=== PATIENT | male | born 1940 | race Caucasian/White ===

== ENCOUNTER 2017-11-11 19:22 | Inpatient (IN) | payer MEDICARE ==
[~2017-11-11] VITALS: Ht 175.3 cm; Wt 62.8 kg
[2017-11-11] MEDS ORDERED: ONDANSETRON 4 MG/2 ML VIAL IV ONE (19:45)
[2017-11-11] MEDS ORDERED: IV NORMAL SALINE 1000 ML BAG IV ONE (19:45)
[2017-11-11] MEDS ORDERED: HYDROMORPHONE 1 MG/1 ML DISP.SYRIN IV ONE (19:45)
[2017-11-11] MEDS ORDERED: HYDROMORPHONE 2 MG/1 ML DISP.SYRIN ONE ×2 (19:45→23:15)
[2017-11-11] MEDS ORDERED: ONDANSETRON 4 MG/2 ML VIAL ONE (19:46)
[2017-11-11 20:12] LABS: BASOPHILS # (AUTO) 0.1 K/uL (0.0-8.0); BASOPHILS % (AUTO) 1.5 % (0.0-2.0); EOSINOPHILS # (AUTO) 0.1 K/uL (0.0-0.7); EOSINOPHILS % (AUTO) 2.1 % (0.0-7.0); HEMATOCRIT 32.2 % (36.7-47.1); HEMOGLOBIN 10.9 g/dL (12.5-16.3); LYMPHOCYTES # (AUTO) 1.8 K/uL (20.0-40.0); MEAN CORPUSCULAR HEMOGLOBIN 32.3 uug (23.8-33.4); MEAN CORPUSCULAR HGB CONC 34 g/dL (32.5-36.3); MEAN CORPUSCULAR VOLUME 95.1 fL (73.0-96.2); MONOCYTES # (AUTO) 0.6 K/uL (2.0-10.0); MONOCYTES % (AUTO) 10.1 % (0.0-11.0); NEUTROPHILS # (AUTO) 3.2 K/uL (1.8-8.9); NEUTROPHILS % (AUTO) 55.3 % (38.5-71.5); PLATELET COUNT (AUTO) 137 K/uL (152-348); RED BLOOD CELL COUNT(AUTO) 3.39 MIL/uL (4.06-5.63); WHITE BLOOD COUNT (AUTO) 5.8 K/uL (3.6-10.2)
[2017-11-11 20:19] LABS: CARBON DIOXIDE 30 mmol/L (21-32); CHLORIDE 102 mmol/L (98-107); CREATININE 1.2 mg/dL (0.6-1.3); GLUCOSE 144 mg/dL (74-106); POTASSIUM 3.7 mmol/L (3.5-5.1); UREA NITROGEN, BLOOD 20 mg/dL (7-18)
[2017-11-11 20:24] LABS: *BILIRUBIN,URIN NEGATIVE (NEGATIVE); *BLOOD, URINE NEGATIVE (NEGATIVE); *CLARITY,URINE CLEAR (CLEAR); *COLOR,URINE YELLOW (YELLOW); *KETONES,URINE NEGATIVE (NEGATIVE); *PROTEIN,URINE 1+ (NEGATIVE); *UROBILINOGEN,URINE 0.2 E.U./dl (NORMAL); LEUKOCYTE ESTERASE ,URINE NEGATIVE (NEGATIVE); NITRITE, URINE NEGATIVE (NEGATIVE); PH,URINE 6.5 (5.0-8.0); UGLUCOSE NEGATIVE (NEGATIVE)
[2017-11-11 20:25] LABS: ALANINE AMINOTRANSFERASE 27 U/L (16-63); ALKALINE PHOSPHATASE 119 U/L (50-136); ASPARTATE AMINOTRANSFERASE 33 U/L (15-37); BILIRUBIN,DIRECT 0.6 mg/dL (0.0-0.2); BILIRUBIN,TOTAL 1.2 mg/dL (0.2-1.0); TOTAL PROTEIN, SERUM 8.5 g/dL (6.4-8.2)
[2017-11-11 20:42] LABS: MUCUS,URINE MODERATE /LPF (0-FEW); SQUAMOUS EPITHELIAL CELL,UR FEW /HPF (NONE SEEN); TRANSITIONAL EPI CELLS,URINE FEW /LPF (NONE SEEN)
[2017-11-11] MEDS ORDERED: HYDROMORPHONE 1 MG/1 ML DISP.SYRIN IV PRN (21:15)
[2017-11-11] MEDS ORDERED: MAGNESIUM HYDROXIDE 30 ML LIQUID UDC PO PRN (21:15)
[2017-11-11] MEDS ORDERED: ACETAMINOPHEN 325 MG TABLET PO PRN (21:15)
[2017-11-11] MEDS ORDERED: ONDANSETRON 4 MG/2 ML VIAL IV PRN (21:15)
[2017-11-11 21:30] VITALS: BP 134/79
[2017-11-11] MEDS ORDERED: DILTIAZEM HCL 25 MG IV IV PRN (22:30)
[2017-11-11] MEDS ORDERED: DIGOXIN 500 MCG/2 ML AMP IV ONE (23:15)
[2017-11-11] MEDS ORDERED: CHOL378P PO (23:24)
[2017-11-11] MEDS ORDERED: CLOP75TA33 PO (23:24)
[2017-11-11] MEDS ORDERED: ATOR80TA PO (23:24)
[2017-11-11] MEDS ORDERED: DICL100G16 TP (23:24)
[2017-11-11 23:33] LABS: ABG BASE EXCESS -3.8 mmol/L; ABG HCO3 26.2 mmol/L; ABG PCO2 76.6 mmHg (35.0-45.0); ABG PH 7.152 (7.350-7.450); ABG PO2 130.8 mmHg (75.0-100.0); ABG SITE LEFT RADIAL; ABG TOTAL HEMOGLOBIN 11.2 G/dL (13.5-18.0); COHb 1.6 % (0.5-1.5); MetHb 0.4 % (0.0-1.5); O2Hb 95.7 % (94.0-97.0)
[2017-11-11 23:49] VITALS: BP 137/85
[2017-11-11] MEDS ORDERED: MIDAZOLAM HCL 2 MG/2 ML VIAL ONE (23:58)
[2017-11-12] VITALS (40 sets, daily range): BP systolic 85–120; BP diastolic 47–73
[2017-11-12] MEDS ORDERED: AMIODARONE HCL IV 900 MG in IV DEXTROSE 5% 482 ML IV PRN ×2
[2017-11-12] MEDS ORDERED: DIGOXIN 500 MCG/2 ML AMP IV ONE
[2017-11-12] MEDS: METOPROLOL TARTRATE 25 MG TABLET PO SCH ×3 (00:28→20:44)
[2017-11-12] MEDS ORDERED: AMIODARONE HCL 150 MG/3 ML VIAL IV ONE (00:42)
[2017-11-12] MEDS: PROPOFOL 100 ML IV PRN ×3 (01:17→22:28)
[2017-11-12] MEDS ORDERED: IV NS 1000 ML 1,000 ML IV PRN (03:00)
[2017-11-12] MEDS ORDERED: DIPH25CA83 TOP (04:04)
[2017-11-12] MEDS ORDERED: APIX5TAB4 PO (04:05)
[2017-11-12] MEDS ORDERED: FOLI1TAB16 PO (04:06)
[2017-11-12] MEDS ORDERED: FURO80TA3 PO (04:07)
[2017-11-12] MEDS ORDERED: MEMA10TA PO (04:15)
[2017-11-12] MEDS ORDERED: MAGN400C PO (04:15)
[2017-11-12] MEDS ORDERED: OLAN2.5T3 PO (04:16)
[2017-11-12] MEDS ORDERED: MULT1TAB73 PO (04:16)
[2017-11-12] MEDS ORDERED: POLY255P2 PO (04:17)
[2017-11-12] MEDS ORDERED: QUET25TA PO (04:20)
[2017-11-12] MEDS ORDERED: POTA10CA43 PO (04:20)
[2017-11-12] MEDS ORDERED: SENN-167 PO (04:21)
[2017-11-12] MEDS ORDERED: TIOT18CA3 INH (04:22)
[2017-11-12 05:28] LABS: BASOPHILS % (AUTO) 0.6 % (0.0-2.0); EOSINOPHILS % (AUTO) 0.1 % (0.0-7.0); HEMATOCRIT 25.9 % (36.7-47.1); HEMOGLOBIN 8.7 g/dL (12.5-16.3); LYMPHOCYTES # (AUTO) 1.2 K/uL (20.0-40.0); LYMPHOCYTES % (AUTO) 16.6 % (20.5-51.5); MEAN CORPUSCULAR HEMOGLOBIN 31.9 uug (23.8-33.4); MEAN CORPUSCULAR HGB CONC 34 g/dL (32.5-36.3); MEAN CORPUSCULAR VOLUME 94.7 fL (73.0-96.2); MONOCYTES # (AUTO) 0.9 K/uL (2.0-10.0); MONOCYTES % (AUTO) 11.8 % (0.0-11.0); NEUTROPHILS # (AUTO) 5.3 K/uL (1.8-8.9); NEUTROPHILS % (AUTO) 70.9 % (38.5-71.5); PLATELET COUNT (AUTO) 80 K/uL (152-348); RED BLOOD CELL COUNT(AUTO) 2.73 MIL/uL (4.06-5.63); WHITE BLOOD COUNT (AUTO) 7.5 K/uL (3.6-10.2)
[2017-11-12 05:36] LABS: CARBON DIOXIDE 29 mmol/L (21-32); CHLORIDE 106 mmol/L (98-107); CREATININE 1.3 mg/dL (0.6-1.3); GLUCOSE 111 mg/dL (74-106); PHOSPHOROUS 3.2 mg/dL (2.5-4.9); POTASSIUM 4.4 mmol/L (3.5-5.1); UREA NITROGEN, BLOOD 21 mg/dL (7-18)
[2017-11-12 06:49] LABS: LYMPHOCYTES % (MANUAL) 17 % (20-40); NEUTROPHILS % (MANUAL) 71 % (42-75)
[2017-11-12 06:50] LABS: EOSINOPHILS % (MANUAL) 1 % (0-8); MONOCYTES % (MANUAL) 11 % (2-10)
[2017-11-12] MEDS: FUROSEMIDE 40 MG/4 ML VIAL IV SCH ×4 (07:46→20:42)
[2017-11-12 09:05] LABS: ABG BASE EXCESS 3.8 mmol/L; ABG HCO3 25.2 mmol/L; ABG PCO2 28.9 mmHg (35.0-45.0); ABG PH 7.558 (7.350-7.450); ABG PO2 483.1 mmHg (75.0-100.0); ABG SITE RIGHT RADIAL; ABG TOTAL HEMOGLOBIN 13.4 G/dL (13.5-18.0); COHb 0.9 % (0.5-1.5); MetHb 0.3 % (0.0-1.5); O2Hb 98.5 % (94.0-97.0); VENT MODE VENT - A/C; VT, ABG 600 mL
[2017-11-12] MEDS ORDERED: SUCCINYLCHOLINE CHLORIDE 200 MG/10 ML VIAL MC ONE (09:53)
[2017-11-12] MEDS: HYDROMORPHONE 2 MG/1 ML DISP.SYRIN IV PRN ×2 (10:32→17:30)
[2017-11-12] MEDS ORDERED: ACETAMINOPHEN 650 MG SUPP.RECT RC PRN (14:15)
[2017-11-12] MEDS: OLANZAPINE 2.5 MG TABLET PO SCH (17:14)
[2017-11-12] MEDS: ASPIRIN 300 MG RECTAL SUPP RC SCH (17:18)
[2017-11-12] MEDS: ATORVASTATIN 40 MG TABLET PO SCH (20:43)
[2017-11-12] MEDS: SENNOSIDES 1 TABLET PO SCH (20:45)
[2017-11-12] MEDS ORDERED: Medication Not On Formulary EA (Atorvastatin Calcium (Lipitor) 80 MG) PO SCH (21:00)
[2017-11-13] VITALS (30 sets, daily range): BP systolic 86–121; BP diastolic 43–78
[2017-11-13] MEDS: PROPOFOL 100 ML IV PRN ×3 (05:58→23:08)
[2017-11-13 08:27] LABS: BASOPHILS # (AUTO) 0.1 K/uL (0.0-8.0); BASOPHILS % (AUTO) 0.9 % (0.0-2.0); EOSINOPHILS # (AUTO) 0.1 K/uL (0.0-0.7); EOSINOPHILS % (AUTO) 1.2 % (0.0-7.0); HEMATOCRIT 26.5 % (36.7-47.1); HEMOGLOBIN 9.3 g/dL (12.5-16.3); LYMPHOCYTES # (AUTO) 1.5 K/uL (20.0-40.0); LYMPHOCYTES % (AUTO) 19.8 % (20.5-51.5); MEAN CORPUSCULAR HEMOGLOBIN 33.1 uug (23.8-33.4); MEAN CORPUSCULAR HGB CONC 35 g/dL (32.5-36.3); MEAN CORPUSCULAR VOLUME 94.5 fL (73.0-96.2); NEUTROPHILS % (AUTO) 65.1 % (38.5-71.5); PLATELET COUNT (AUTO) 67 K/uL (152-348); WHITE BLOOD COUNT (AUTO) 7.7 K/uL (3.6-10.2)
[2017-11-13 08:32] LABS: CHLORIDE 108 mmol/L (98-107); CREATININE 1.2 mg/dL (0.6-1.3); GLUCOSE 69 mg/dL (74-106); MAGNESIUM 1.9 mg/dL (1.8-2.4); PHOSPHOROUS 3.3 mg/dL (2.5-4.9); POTASSIUM 3.1 mmol/L (3.5-5.1); UREA NITROGEN, BLOOD 23 mg/dL (7-18)
[2017-11-13 08:39] LABS: CARBON DIOXIDE 24 mmol/L (21-32)
[2017-11-13] MEDS: FOLIC ACID 1 MG TABLET PO SCH (09:00)
[2017-11-13] MEDS: METOPROLOL TARTRATE 25 MG TABLET PO SCH ×2 (09:00→20:47)
[2017-11-13] MEDS ORDERED: POLYETHYLENE GLYCOL 3350 238 GM POWDER PO SCH (09:00)
[2017-11-13] MEDS: MEMANTINE HCL 10 MG TABLET PO SCH (09:00)
[2017-11-13 09:11] LABS: ABG BASE EXCESS 2.3 mmol/L; ABG PCO2 27.3 mmHg (35.0-45.0); ABG PH 7.562 (7.350-7.450); ABG PO2 139.1 mmHg (75.0-100.0); ABG SITE RIGHT RADIAL; ABG TOTAL HEMOGLOBIN 9.5 G/dL (13.5-18.0); COHb 1.4 % (0.5-1.5); MetHb 0.3 % (0.0-1.5); O2Hb 97.4 % (94.0-97.0); VENT MODE VENT - A/C; VT, ABG 600 mL
[2017-11-13] MEDS: HYDROMORPHONE 2 MG/1 ML DISP.SYRIN IV PRN ×2 (09:42→15:05)
[2017-11-13] MEDS ORDERED: methylPREDNISolone SOD SUCC 125 MG/2 ML VIAL IV SCH (10:00)
[2017-11-13] MEDS: FUROSEMIDE 40 MG/4 ML VIAL IV SCH ×2 (10:06→20:47)
[2017-11-13] MEDS: ASPIRIN 300 MG RECTAL SUPP RC SCH (10:07)
[2017-11-13 10:13] LABS: BAND % (MANUAL) 3 % (0-10); EOSINOPHILS % (MANUAL) 3 % (0-8); LYMPHOCYTES % (MANUAL) 20 % (20-40); MONOCYTES % (MANUAL) 12 % (2-10); NEUTROPHILS % (MANUAL) 62 % (42-75)
[2017-11-13] MEDS ORDERED: ALBUTEROL SULFATE 1.25 MG/3 ML NEBU NEB SCH (11:30)
[2017-11-13] MEDS: ALBUTEROL SULFATE 1.25 MG/3 ML NEBU NEB PRN ×2 (12:55→19:16)
[2017-11-13] MEDS: IPRATROPIUM BROMIDE 0.5 MG/2.5 ML NEBU NEB SCH ×2 (12:55→19:16)
[2017-11-13] MEDS ORDERED: POLYMYXIN B SULFATE 500,000 UNITS, BACITRACIN 50,000 UNITS, NORMAL SALINE 20 ML MC ONE ×3 (15:00)
[2017-11-13] MEDS: POTASSIUM CHLORIDE 50 ML IV SCH ×4 (15:08→17:22)
[2017-11-13] MEDS ORDERED: DIGOXIN 500 MCG/2 ML AMP IV ONE ×2 (15:45→18:00)
[2017-11-13] MEDS ORDERED: ROCURONIUM BROMIDE 50 MG/5 ML VIAL ONE (15:57)
[2017-11-13] MEDS ORDERED: MIDAZOLAM HCL 2 MG/2 ML VIAL ONE (15:57)
[2017-11-13] MEDS ORDERED: LABETALOL HCL 100 MG/20 ML VIAL IV PRN (16:30)
[2017-11-13] MEDS ORDERED: MORPHINE SULFATE 2 MG/1 ML DISP.SYRIN IV PRN (16:30)
[2017-11-13] MEDS: methylPREDNISolone SOD SUCC 40 MG/ML VIAL IV SCH (17:22)
[2017-11-13] MEDS: OLANZAPINE 2.5 MG TABLET PO SCH (17:35)
[2017-11-13] MEDS ORDERED: BLOOD SUGAR DIAGNOSTIC 1 EACH STRIP VI ONE (18:15)
[2017-11-13] MEDS ORDERED: IV NORMAL SALINE 250 ML IV PRN (18:30)
[2017-11-13] MEDS: IV D5 1/2 NS 1000 ML 1,000 ML IV PRN (19:36)
[2017-11-13] MEDS: ATORVASTATIN 40 MG TABLET PO SCH (20:47)
[2017-11-13] MEDS: SENNOSIDES 1 TABLET PO SCH (20:48)
[2017-11-13] MEDS: Z GUARD REMEDY PASTE 57 GM TUBE TOP PRN (22:02)
[2017-11-13] MEDS ORDERED: DIGOXIN 500 MCG/2 ML AMP IV SCH (23:45)
[2017-11-14] VITALS (34 sets, daily range): BP systolic 94–138; BP diastolic 48–83
[2017-11-14] MEDS: IPRATROPIUM BROMIDE 0.5 MG/2.5 ML NEBU NEB SCH ×4 (01:01→19:44)
[2017-11-14] MEDS: ALBUTEROL SULFATE 1.25 MG/3 ML NEBU NEB PRN ×4 (01:02→19:44)
[2017-11-14] MEDS: PROPOFOL 100 ML IV PRN ×3 (05:10→23:25)
[2017-11-14 05:38] LABS: BASOPHILS % (AUTO) 0.2 % (0.0-2.0); HEMATOCRIT 30.7 % (36.7-47.1); HEMOGLOBIN 10.4 g/dL (12.5-16.3); LYMPHOCYTES # (AUTO) 0.9 K/uL (20.0-40.0); LYMPHOCYTES % (AUTO) 12.4 % (20.5-51.5); MEAN CORPUSCULAR HEMOGLOBIN 32.5 uug (23.8-33.4); MEAN CORPUSCULAR HGB CONC 34 g/dL (32.5-36.3); MEAN CORPUSCULAR VOLUME 95.5 fL (73.0-96.2); MONOCYTES # (AUTO) 0.2 K/uL (2.0-10.0); MONOCYTES % (AUTO) 2.3 % (0.0-11.0); NEUTROPHILS % (AUTO) 85.1 % (38.5-71.5); PLATELET COUNT (AUTO) 73 K/uL (152-348); RED BLOOD CELL COUNT(AUTO) 3.21 MIL/uL (4.06-5.63)
[2017-11-14 05:45] LABS: CARBON DIOXIDE 25 mmol/L (21-32); CHLORIDE 106 mmol/L (98-107); CREATININE 1.4 mg/dL (0.6-1.3); GLUCOSE 164 mg/dL (74-106); POTASSIUM 5.2 mmol/L (3.5-5.1); UREA NITROGEN, BLOOD 27 mg/dL (7-18)
[2017-11-14 05:47] LABS: MAGNESIUM 2.1 mg/dL (1.8-2.4); PHOSPHOROUS 6.6 mg/dL (2.5-4.9)
[2017-11-14] MEDS: MEMANTINE HCL 10 MG TABLET PO SCH (09:00)
[2017-11-14] MEDS: ASPIRIN 300 MG RECTAL SUPP RC SCH (09:00)
[2017-11-14] MEDS: MIRALAX 17 GM POWD.PACK PO SCH (09:00)
[2017-11-14] MEDS: FOLIC ACID 1 MG TABLET PO SCH (09:00)
[2017-11-14] MEDS: METOPROLOL TARTRATE 25 MG TABLET PO SCH ×2 (09:00→21:00)
[2017-11-14] MEDS ORDERED: DIGOXIN 500 MCG/2 ML AMP IV SCH (09:01)
[2017-11-14 09:12] LABS: BAND % (MANUAL) 3 % (0-10); LYMPHOCYTES % (MANUAL) 12 % (20-40); MONOCYTES % (MANUAL) 3 % (2-10); NEUTROPHILS % (MANUAL) 82 % (42-75)
[2017-11-14 09:17] LABS: ABG BASE EXCESS -2.2 mmol/L; ABG HCO3 23.1 mmol/L; ABG PCO2 42.1 mmHg (35.0-45.0); ABG PH 7.358 (7.350-7.450); ABG PO2 145.6 mmHg (75.0-100.0); ABG SITE RIGHT RADIAL; ABG TOTAL HEMOGLOBIN 9.8 G/dL (13.5-18.0); COHb 1.3 % (0.5-1.5); MetHb 0.5 % (0.0-1.5); O2Hb 97.3 % (94.0-97.0); VENT MODE VENT - A/C; VT, ABG 500 mL
[2017-11-14] MEDS: methylPREDNISolone SOD SUCC 40 MG/ML VIAL IV SCH ×2 (09:27→17:45)
[2017-11-14] MEDS: FUROSEMIDE 40 MG/4 ML VIAL IV SCH ×2 (09:27→20:47)
[2017-11-14] MEDS ORDERED: ROCURONIUM BROMIDE 50 MG/5 ML VIAL ONE (10:50)
[2017-11-14] MEDS ORDERED: MIDAZOLAM HCL 2 MG/2 ML VIAL ONE (10:50)
[2017-11-14] MEDS ORDERED: CEFAZOLIN 1 G VIAL MC ONE (11:58)
[2017-11-14] MEDS ORDERED: SEVOFLURANE 250 ML BOTTLE IH ONE (11:58)
[2017-11-14] MEDS ORDERED: PROPOFOL 200 MG/20 ML BOTTLE IV ONE (11:58)
[2017-11-14] MEDS ORDERED: IV NORMAL SALINE 1000 ML BAG IV ONE (11:58)
[2017-11-14] MEDS ORDERED: CEFAZOLIN 50 ML IV ONE (12:28)
[2017-11-14] MEDS: IV D5 1/2 NS 1000 ML 1,000 ML IV PRN (12:43)
[2017-11-14] MEDS: OLANZAPINE 2.5 MG TABLET PO SCH (17:44)
[2017-11-14 18:50] LABS: *BILIRUBIN,URIN NEGATIVE (NEGATIVE); *BLOOD, URINE 2+ (NEGATIVE); *CLARITY,URINE SLIGHTLY CLOUDY (CLEAR); *COLOR,URINE YELLOW (YELLOW); *KETONES,URINE NEGATIVE (NEGATIVE); *PROTEIN,URINE TRACE (NEGATIVE); *UROBILINOGEN,URINE 0.2 E.U./dl (NORMAL); LEUKOCYTE ESTERASE ,URINE 2+ (NEGATIVE); NITRITE, URINE NEGATIVE (NEGATIVE); PH,URINE 5.5 (5.0-8.0); UGLUCOSE NEGATIVE (NEGATIVE)
[2017-11-14 18:51] LABS: *CREATININE,URINE 74.9 mg/dL (30-125); *URINE TOTAL PROTEIN RANDOM 32.7 mg/dL (<150/24HR)
[2017-11-14 19:33] LABS: BACTERIA,URINE FEW /HPF (NONE SEEN); WBC,URINE 50-80 /HPF (0-3)
[2017-11-14 19:34] LABS: MUCUS,URINE MODERATE /LPF (0-FEW)
[2017-11-14] MEDS: ATORVASTATIN 40 MG TABLET PO SCH (21:00)
[2017-11-14] MEDS: SENNOSIDES 1 TABLET PO SCH (21:00)
[2017-11-15] VITALS (30 sets, daily range): BP systolic 91–140; BP diastolic 37–83
[2017-11-15] MEDS: ALBUTEROL SULFATE 1.25 MG/3 ML NEBU NEB PRN ×2 (01:18→19:22)
[2017-11-15] MEDS: IPRATROPIUM BROMIDE 0.5 MG/2.5 ML NEBU NEB SCH ×4 (01:18→19:22)
[2017-11-15] MEDS: Z GUARD REMEDY PASTE 57 GM TUBE TOP PRN ×2 (02:10→21:12)
[2017-11-15 05:12] LABS: BASOPHILS % (AUTO) 0.1 % (0.0-2.0); HEMOGLOBIN 8.9 g/dL (12.5-16.3); LYMPHOCYTES # (AUTO) 0.5 K/uL (20.0-40.0); LYMPHOCYTES % (AUTO) 4.9 % (20.5-51.5); MEAN CORPUSCULAR HEMOGLOBIN 32.2 uug (23.8-33.4); MEAN CORPUSCULAR HGB CONC 34 g/dL (32.5-36.3); MEAN CORPUSCULAR VOLUME 94.3 fL (73.0-96.2); MONOCYTES # (AUTO) 0.8 K/uL (2.0-10.0); MONOCYTES % (AUTO) 8.2 % (0.0-11.0); NEUTROPHILS # (AUTO) 8.4 K/uL (1.8-8.9); NEUTROPHILS % (AUTO) 86.8 % (38.5-71.5); PLATELET COUNT (AUTO) 94 K/uL (152-348); RED BLOOD CELL COUNT(AUTO) 2.76 MIL/uL (4.06-5.63); WHITE BLOOD COUNT (AUTO) 9.6 K/uL (3.6-10.2)
[2017-11-15 05:27] LABS: ALANINE AMINOTRANSFERASE 17 U/L (16-63); ALKALINE PHOSPHATASE 92 U/L (50-136); ASPARTATE AMINOTRANSFERASE 22 U/L (15-37); BILIRUBIN,TOTAL 1.4 mg/dL (0.2-1.0); CARBON DIOXIDE 27 mmol/L (21-32); CHLORIDE 107 mmol/L (98-107); CREATINE KINASE, TOTAL 47 U/L (39-308); CREATININE 1.5 mg/dL (0.6-1.3); GLUCOSE 230 mg/dL (74-106); MAGNESIUM 2.2 mg/dL (1.8-2.4); PHOSPHOROUS 6.1 mg/dL (2.5-4.9); POTASSIUM 4.4 mmol/L (3.5-5.1); UREA NITROGEN, BLOOD 36 mg/dL (7-18)
[2017-11-15] MEDS: IV D5 1/2 NS 1000 ML 1,000 ML IV PRN ×2 (06:15→23:54)
[2017-11-15] MEDS: methylPREDNISolone SOD SUCC 40 MG/ML VIAL IV SCH (08:58)
[2017-11-15] MEDS: ASPIRIN 300 MG RECTAL SUPP RC SCH (08:58)
[2017-11-15] MEDS: HYDROMORPHONE 2 MG/1 ML DISP.SYRIN IV PRN (08:58)
[2017-11-15] MEDS: FUROSEMIDE 40 MG/4 ML VIAL IV SCH (08:58)
[2017-11-15] MEDS: METOPROLOL TARTRATE 25 MG TABLET PO SCH ×2 (09:00→21:00)
[2017-11-15] MEDS: MIRALAX 17 GM POWD.PACK PO SCH (09:00)
[2017-11-15] MEDS: MEMANTINE HCL 10 MG TABLET PO SCH (09:00)
[2017-11-15] MEDS: FOLIC ACID 1 MG TABLET PO SCH (09:00)
[2017-11-15 09:18] LABS: ABG BASE EXCESS -1.2 mmol/L; ABG PCO2 42.1 mmHg (35.0-45.0); ABG PH 7.373 (7.350-7.450); ABG PO2 169.1 mmHg (75.0-100.0); ABG SITE RIGHT RADIAL; ABG TOTAL HEMOGLOBIN 8.7 G/dL (13.5-18.0); COHb 1.5 % (0.5-1.5); MetHb 0.4 % (0.0-1.5); O2Hb 97.3 % (94.0-97.0); VENT MODE VENT - SIMV4 PS12; VT, ABG 500 mL
[2017-11-15] MEDS ORDERED: SEVOFLURANE 250 ML BOTTLE IH ONE (11:51)
[2017-11-15] MEDS ORDERED: CEFAZOLIN 1 G VIAL MC ONE (11:51)
[2017-11-15] MEDS ORDERED: IV NORMAL SALINE 1000 ML BAG IV ONE (11:51)
[2017-11-15] MEDS ORDERED: PROPOFOL 200 MG/20 ML BOTTLE IV ONE (11:51)
[2017-11-15] MEDS: OLANZAPINE 2.5 MG TABLET PO SCH (17:33)
[2017-11-15] MEDS: BACITRACIN/POLYMYXIN B OINT 15 GM TUBE TOP SCH (17:33)
[2017-11-15] MEDS ORDERED: ATORVASTATIN 40 MG TABLET PO SCH (21:00)
[2017-11-15] MEDS: SENNOSIDES 1 TABLET PO SCH (21:00)
[2017-11-16] VITALS (27 sets, daily range): BP systolic 90–131; BP diastolic 43–69
[2017-11-16] MEDS: IPRATROPIUM BROMIDE 0.5 MG/2.5 ML NEBU NEB SCH ×4 (00:39→19:28)
[2017-11-16] MEDS: ALBUTEROL SULFATE 1.25 MG/3 ML NEBU NEB PRN ×4 (00:39→19:28)
[2017-11-16 05:07] LABS: BASOPHILS % (AUTO) 0.1 % (0.0-2.0); EOSINOPHILS % (AUTO) 0.1 % (0.0-7.0); HEMOGLOBIN 7.9 g/dL (12.5-16.3); LYMPHOCYTES # (AUTO) 0.7 K/uL (20.0-40.0); LYMPHOCYTES % (AUTO) 7.2 % (20.5-51.5); MEAN CORPUSCULAR HEMOGLOBIN 32.3 uug (23.8-33.4); MEAN CORPUSCULAR HGB CONC 34 g/dL (32.5-36.3); MEAN CORPUSCULAR VOLUME 94.1 fL (73.0-96.2); MONOCYTES # (AUTO) 1.3 K/uL (2.0-10.0); MONOCYTES % (AUTO) 12.4 % (0.0-11.0); NEUTROPHILS # (AUTO) 8.2 K/uL (1.8-8.9); NEUTROPHILS % (AUTO) 80.2 % (38.5-71.5); PLATELET COUNT (AUTO) 84 K/uL (152-348); WHITE BLOOD COUNT (AUTO) 10.2 K/uL (3.6-10.2)
[2017-11-16 05:15] LABS: RED BLOOD CELL COUNT(AUTO) 2.44 MIL/uL (4.06-5.63)
[2017-11-16 05:35] LABS: CARBON DIOXIDE 32 mmol/L (21-32); CHLORIDE 110 mmol/L (98-107); CREATININE 1.2 mg/dL (0.6-1.3); GLUCOSE 175 mg/dL (74-106); MAGNESIUM 2.1 mg/dL (1.8-2.4); PHOSPHOROUS 3.3 mg/dL (2.5-4.9); UREA NITROGEN, BLOOD 40 mg/dL (7-18)
[2017-11-16 08:35] LABS: ABG BASE EXCESS 2.9 mmol/L; ABG HCO3 28.2 mmol/L; ABG PCO2 47.5 mmHg (35.0-45.0); ABG PH 7.392 (7.350-7.450); ABG PO2 85.2 mmHg (75.0-100.0); ABG SITE RIGHT RADIAL; ABG TOTAL HEMOGLOBIN 8.3 G/dL (13.5-18.0); COHb 1.9 % (0.5-1.5); MetHb 0.5 % (0.0-1.5); O2Hb 93.9 % (94.0-97.0)
[2017-11-16] MEDS: MEMANTINE HCL 5 MG TABLET PO SCH (09:00)
[2017-11-16] MEDS: MIRALAX 17 GM POWD.PACK PO SCH (09:00)
[2017-11-16] MEDS ORDERED: FUROSEMIDE 40 MG/4 ML VIAL IV SCH (09:00)
[2017-11-16] MEDS: FOLIC ACID 1 MG TABLET PO SCH (09:00)
[2017-11-16] MEDS: METOPROLOL TARTRATE 25 MG TABLET PO SCH ×2 (09:00→20:17)
[2017-11-16] MEDS: ASPIRIN 300 MG RECTAL SUPP RC SCH ×2 (09:00→18:28)
[2017-11-16] MEDS: FUROSEMIDE 20 MG/2 ML VIAL IV SCH (09:39)
[2017-11-16] MEDS: BACITRACIN/POLYMYXIN B OINT 15 GM TUBE TOP SCH (10:03)
[2017-11-16] MEDS ORDERED: FUROSEMIDE 20 MG/2 ML VIAL IV PRN (11:30)
[2017-11-16 11:53] LABS: THYROID STIMULATING HORMONE 0.364 mIU/mL (0.358-3.740)
[2017-11-16] MEDS: OLANZAPINE 2.5 MG TABLET PO SCH (18:00)
[2017-11-16] MEDS: SENNOSIDES 1 TABLET PO SCH (20:17)
[2017-11-16] MEDS: IV D5 1/2 NS 1000 ML 1,000 ML IV PRN (20:17)
[2017-11-17] VITALS (24 sets, daily range): BP systolic 96–138; BP diastolic 41–76
[2017-11-17] MEDS: IPRATROPIUM BROMIDE 0.5 MG/2.5 ML NEBU NEB SCH ×4 (00:32→19:12)
[2017-11-17 05:17] LABS: BASOPHILS % (AUTO) 0.1 % (0.0-2.0); EOSINOPHILS % (AUTO) 0.3 % (0.0-7.0); HEMOGLOBIN 8.6 g/dL (12.5-16.3); LYMPHOCYTES # (AUTO) 1.3 K/uL (20.0-40.0); LYMPHOCYTES % (AUTO) 13.7 % (20.5-51.5); MEAN CORPUSCULAR HEMOGLOBIN 32.1 uug (23.8-33.4); MEAN CORPUSCULAR HGB CONC 34 g/dL (32.5-36.3); MEAN CORPUSCULAR VOLUME 93.6 fL (73.0-96.2); MONOCYTES # (AUTO) 1.1 K/uL (2.0-10.0); MONOCYTES % (AUTO) 11.1 % (0.0-11.0); NEUTROPHILS # (AUTO) 7.3 K/uL (1.8-8.9); NEUTROPHILS % (AUTO) 74.8 % (38.5-71.5); PLATELET COUNT (AUTO) 75 K/uL (152-348); RED BLOOD CELL COUNT(AUTO) 2.67 MIL/uL (4.06-5.63); WHITE BLOOD COUNT (AUTO) 9.7 K/uL (3.6-10.2)
[2017-11-17 05:24] LABS: CARBON DIOXIDE 31 mmol/L (21-32); CHLORIDE 111 mmol/L (98-107); CREATININE 0.9 mg/dL (0.6-1.3); GLUCOSE 150 mg/dL (74-106); POTASSIUM 3.2 mmol/L (3.5-5.1); UREA NITROGEN, BLOOD 29 mg/dL (7-18)
[2017-11-17] MEDS: ALBUTEROL SULFATE 1.25 MG/3 ML NEBU NEB PRN ×3 (07:15→19:12)
[2017-11-17] MEDS: FUROSEMIDE 20 MG/2 ML VIAL IV SCH ×2 (08:46→17:11)
[2017-11-17] MEDS: FOLIC ACID 1 MG TABLET PO SCH (09:00)
[2017-11-17] MEDS: METOPROLOL TARTRATE 25 MG TABLET PO SCH ×2 (09:00→20:19)
[2017-11-17] MEDS: MEMANTINE HCL 5 MG TABLET PO SCH (09:00)
[2017-11-17] MEDS: MIRALAX 17 GM POWD.PACK PO SCH (09:00)
[2017-11-17 09:19] LABS: ABG HCO3 33.5 mmol/L; ABG PCO2 52.9 mmHg (35.0-45.0); ABG PO2 61.9 mmHg (75.0-100.0); ABG SITE RIGHT RADIAL; ABG TOTAL HEMOGLOBIN 8.9 G/dL (13.5-18.0); COHb 2.1 % (0.5-1.5); MetHb 0.4 % (0.0-1.5); O2Hb 89.5 % (94.0-97.0); VENT MODE Mask - Venturi - 35%
[2017-11-17] MEDS: ASPIRIN 300 MG RECTAL SUPP RC SCH (09:50)
[2017-11-17] MEDS: BACITRACIN/POLYMYXIN B OINT 15 GM TUBE TOP SCH (09:50)
[2017-11-17] MEDS: POTASSIUM PHOSPHATE MM 7.5 MMOL in IV DEXTROSE 5% 100 ML IV SCH ×2 (10:30→13:34)
[2017-11-17] MEDS: DIGOXIN 125 MCG TABLET PO SCH (12:43)
[2017-11-17] MEDS: OLANZAPINE 2.5 MG TABLET PO SCH (17:11)
[2017-11-17] MEDS: IV D5 1/2 NS 1000 ML 1,000 ML IV PRN (20:19)
[2017-11-17] MEDS: SENNOSIDES 1 TABLET PO SCH (20:19)
[2017-11-18] VITALS (24 sets, daily range): BP systolic 95–127; BP diastolic 41–93
[2017-11-18] MEDS: IPRATROPIUM BROMIDE 0.5 MG/2.5 ML NEBU NEB SCH ×4 (01:26→19:26)
[2017-11-18] MEDS: ALBUTEROL SULFATE 1.25 MG/3 ML NEBU NEB PRN ×4 (01:26→19:26)
[2017-11-18 05:29] LABS: BASOPHILS % (AUTO) 0.2 % (0.0-2.0); EOSINOPHILS # (AUTO) 0.1 K/uL (0.0-0.7); EOSINOPHILS % (AUTO) 1.1 % (0.0-7.0); HEMATOCRIT 24.6 % (36.7-47.1); HEMOGLOBIN 8.4 g/dL (12.5-16.3); MEAN CORPUSCULAR HGB CONC 34 g/dL (32.5-36.3); MEAN CORPUSCULAR VOLUME 93.6 fL (73.0-96.2); MONOCYTES # (AUTO) 0.9 K/uL (2.0-10.0); MONOCYTES % (AUTO) 10.2 % (0.0-11.0); NEUTROPHILS # (AUTO) 6.6 K/uL (1.8-8.9); NEUTROPHILS % (AUTO) 76.5 % (38.5-71.5); PLATELET COUNT (AUTO) 67 K/uL (152-348); RED BLOOD CELL COUNT(AUTO) 2.62 MIL/uL (4.06-5.63); WHITE BLOOD COUNT (AUTO) 8.6 K/uL (3.6-10.2)
[2017-11-18 05:45] LABS: ALANINE AMINOTRANSFERASE 15 U/L (16-63); ALKALINE PHOSPHATASE 112 U/L (50-136); ASPARTATE AMINOTRANSFERASE 33 U/L (15-37); BILIRUBIN,TOTAL 1.8 mg/dL (0.2-1.0); CARBON DIOXIDE 34 mmol/L (21-32); CHLORIDE 113 mmol/L (98-107); CREATININE 0.6 mg/dL (0.6-1.3); GLUCOSE 150 mg/dL (74-106); MAGNESIUM 1.8 mg/dL (1.8-2.4); PHOSPHOROUS 1.7 mg/dL (2.5-4.9); POTASSIUM 3.2 mmol/L (3.5-5.1); TOTAL PROTEIN, SERUM 6.2 g/dL (6.4-8.2); UREA NITROGEN, BLOOD 23 mg/dL (7-18)
[2017-11-18 06:33] LABS: LYMPHOCYTES % (MANUAL) 10 % (20-40); MONOCYTES % (MANUAL) 10 % (2-10); NEUTROPHILS % (MANUAL) 80 % (42-75)
[2017-11-18] MEDS: CEFTRIAXONE 1 G in IV DEXTROSE 5% 50 ML IV SCH (08:49)
[2017-11-18] MEDS: FUROSEMIDE 20 MG/2 ML VIAL IV SCH ×2 (08:49→17:04)
[2017-11-18] MEDS: ASPIRIN 81 MG TAB.CHEW PO SCH ×2 (08:49→15:40)
[2017-11-18] MEDS: DIGOXIN 125 MCG TABLET PO SCH (08:50)
[2017-11-18] MEDS: FOLIC ACID 1 MG TABLET PO SCH (08:50)
[2017-11-18] MEDS: METOPROLOL TARTRATE 25 MG TABLET PO SCH ×2 (08:50→20:09)
[2017-11-18] MEDS: MIRALAX 17 GM POWD.PACK PO SCH (08:51)
[2017-11-18] MEDS: MEMANTINE HCL 5 MG TABLET PO SCH (08:51)
[2017-11-18] MEDS: BACITRACIN/POLYMYXIN B OINT 15 GM TUBE TOP SCH (08:52)
[2017-11-18 08:54] LABS: ABG HCO3 32.1 mmol/L; ABG PCO2 48.5 mmHg (35.0-45.0); ABG PH 7.438 (7.350-7.450); ABG SITE RIGHT RADIAL; ABG TOTAL HEMOGLOBIN 8.8 G/dL (13.5-18.0); MetHb 0.2 % (0.0-1.5); O2Hb 96.5 % (94.0-97.0); VENT MODE BIPAP
[2017-11-18] MEDS: HYDROCODONE/APAP 5-325MG TABLET PO PRN ×2 (12:55→19:29)
[2017-11-18] MEDS: POTASSIUM PHOSPHATE MM 5 MMOL in IV DEXTROSE 5% 100 ML IV SCH ×4 (12:55→19:06)
[2017-11-18] MEDS: OLANZAPINE 2.5 MG TABLET PO SCH (18:10)
[2017-11-18] MEDS: IV D5 1/2 NS 1000 ML 1,000 ML IV PRN (20:07)
[2017-11-18] MEDS: SENNOSIDES 1 TABLET PO SCH (20:09)
[2017-11-19] VITALS (27 sets, daily range): BP systolic 86–117; BP diastolic 40–63
[2017-11-19] MEDS: ALBUTEROL SULFATE 1.25 MG/3 ML NEBU NEB PRN ×4 (00:40→19:29)
[2017-11-19] MEDS: IPRATROPIUM BROMIDE 0.5 MG/2.5 ML NEBU NEB SCH ×4 (00:40→19:29)
[2017-11-19 05:11] LABS: BASOPHILS % (AUTO) 0.3 % (0.0-2.0); EOSINOPHILS # (AUTO) 0.2 K/uL (0.0-0.7); HEMATOCRIT 25.8 % (36.7-47.1); HEMOGLOBIN 8.8 g/dL (12.5-16.3); LYMPHOCYTES # (AUTO) 1.2 K/uL (20.0-40.0); LYMPHOCYTES % (AUTO) 15.2 % (20.5-51.5); MEAN CORPUSCULAR HGB CONC 34 g/dL (32.5-36.3); MEAN CORPUSCULAR VOLUME 93.7 fL (73.0-96.2); MONOCYTES # (AUTO) 0.9 K/uL (2.0-10.0); MONOCYTES % (AUTO) 11.4 % (0.0-11.0); NEUTROPHILS # (AUTO) 5.6 K/uL (1.8-8.9); NEUTROPHILS % (AUTO) 71.1 % (38.5-71.5); PLATELET COUNT (AUTO) 78 K/uL (152-348); RED BLOOD CELL COUNT(AUTO) 2.76 MIL/uL (4.06-5.63); WHITE BLOOD COUNT (AUTO) 7.8 K/uL (3.6-10.2)
[2017-11-19] MEDS: Z GUARD REMEDY PASTE 57 GM TUBE TOP PRN (05:14)
[2017-11-19 05:24] LABS: CARBON DIOXIDE 34 mmol/L (21-32); CHLORIDE 112 mmol/L (98-107); CREATININE 0.8 mg/dL (0.6-1.3); GLUCOSE 119 mg/dL (74-106); MAGNESIUM 1.8 mg/dL (1.8-2.4); PHOSPHOROUS 1.7 mg/dL (2.5-4.9); POTASSIUM 3.1 mmol/L (3.5-5.1); UREA NITROGEN, BLOOD 19 mg/dL (7-18)
[2017-11-19 07:58] LABS: ABG BASE EXCESS 8.5 mmol/L; ABG HCO3 31.9 mmol/L; ABG PCO2 39.2 mmHg (35.0-45.0); ABG PH 7.528 (7.350-7.450); ABG PO2 49.2 mmHg (75.0-100.0); ABG SITE RIGHT BRACHIAL; ABG TOTAL HEMOGLOBIN 12.3 G/dL (13.5-18.0); COHb 2.2 % (0.5-1.5); MetHb 0.4 % (0.0-1.5); O2Hb 86.1 % (94.0-97.0); VENT MODE Nasal Cannula
[2017-11-19] MEDS: FUROSEMIDE 20 MG/2 ML VIAL IV SCH (08:24)
[2017-11-19] MEDS: FOLIC ACID 1 MG TABLET PO SCH (08:24)
[2017-11-19] MEDS: MEMANTINE HCL 5 MG TABLET PO SCH (08:24)
[2017-11-19] MEDS: DIGOXIN 125 MCG TABLET PO SCH (08:24)
[2017-11-19] MEDS: MIRALAX 17 GM POWD.PACK PO SCH (08:24)
[2017-11-19] MEDS: BACITRACIN/POLYMYXIN B OINT 15 GM TUBE TOP SCH (08:25)
[2017-11-19] MEDS: METOPROLOL TARTRATE 25 MG TABLET PO SCH ×2 (09:00→21:42)
[2017-11-19] MEDS: CEFTRIAXONE 1 G in IV DEXTROSE 5% 50 ML IV SCH (09:09)
[2017-11-19] MEDS: POTASSIUM PHOSPHATE MM 5 MMOL in IV DEXTROSE 5% 100 ML IV SCH ×4 (10:00→14:32)
[2017-11-19] MEDS ORDERED: NEUTRA PHOS PACKET PO ONE (11:00)
[2017-11-19] MEDS ORDERED: POTASSIUM CHLORIDE 20 MEQ POWDER PACKET PO ONE (11:00)
[2017-11-19] MEDS: MAGNESIUM SULFATE/D5W 100 ML IV SCH ×3 (11:19→14:33)
[2017-11-19] MEDS: HYDROMORPHONE 2 MG/1 ML DISP.SYRIN IV PRN (16:30)
[2017-11-19] MEDS: OLANZAPINE 2.5 MG TABLET PO SCH (17:32)
[2017-11-19] MEDS: FUROSEMIDE 40 MG TABLET PO SCH (17:33)
[2017-11-19] MEDS: SENNOSIDES 1 TABLET PO SCH (21:41)
[2017-11-19] MEDS: IV D5 1/2 NS 1000 ML 1,000 ML IV PRN (23:43)
[2017-11-20] VITALS (30 sets, daily range): BP systolic 83–130; BP diastolic 15–66
[2017-11-20] MEDS: IPRATROPIUM BROMIDE 0.5 MG/2.5 ML NEBU NEB SCH ×4 (00:26→19:14)
[2017-11-20] MEDS: ALBUTEROL SULFATE 1.25 MG/3 ML NEBU NEB PRN ×3 (00:26→13:40)
[2017-11-20 05:27] LABS: BASOPHILS % (AUTO) 0.4 % (0.0-2.0); EOSINOPHILS # (AUTO) 0.2 K/uL (0.0-0.7); EOSINOPHILS % (AUTO) 2.1 % (0.0-7.0); HEMATOCRIT 28.2 % (36.7-47.1); HEMOGLOBIN 9.8 g/dL (12.5-16.3); LYMPHOCYTES # (AUTO) 1.8 K/uL (20.0-40.0); LYMPHOCYTES % (AUTO) 17.5 % (20.5-51.5); MEAN CORPUSCULAR HGB CONC 35 g/dL (32.5-36.3); MEAN CORPUSCULAR VOLUME 95.1 fL (73.0-96.2); MONOCYTES # (AUTO) 1.2 K/uL (2.0-10.0); MONOCYTES % (AUTO) 11.9 % (0.0-11.0); NEUTROPHILS # (AUTO) 6.9 K/uL (1.8-8.9); NEUTROPHILS % (AUTO) 68.1 % (38.5-71.5); PLATELET COUNT (AUTO) 91 K/uL (152-348); RED BLOOD CELL COUNT(AUTO) 2.96 MIL/uL (4.06-5.63); WHITE BLOOD COUNT (AUTO) 10.1 K/uL (3.6-10.2)
[2017-11-20 05:45] LABS: CARBON DIOXIDE 34 mmol/L (21-32); CHLORIDE 110 mmol/L (98-107); CREATININE 0.8 mg/dL (0.6-1.3); GLUCOSE 137 mg/dL (74-106); MAGNESIUM 2.3 mg/dL (1.8-2.4); PHOSPHOROUS 2.6 mg/dL (2.5-4.9); POTASSIUM 3.8 mmol/L (3.5-5.1); UREA NITROGEN, BLOOD 18 mg/dL (7-18)
[2017-11-20] MEDS: DIGOXIN 125 MCG TABLET PO SCH (08:07)
[2017-11-20] MEDS: MIRALAX 17 GM POWD.PACK PO SCH (08:07)
[2017-11-20] MEDS: FOLIC ACID 1 MG TABLET PO SCH (08:07)
[2017-11-20] MEDS: FUROSEMIDE 40 MG TABLET PO SCH ×2 (08:07→17:16)
[2017-11-20] MEDS: METOPROLOL TARTRATE 25 MG TABLET PO SCH ×2 (08:08→20:43)
[2017-11-20] MEDS: MEMANTINE HCL 5 MG TABLET PO SCH (08:09)
[2017-11-20] MEDS: BACITRACIN/POLYMYXIN B OINT 15 GM TUBE TOP SCH (08:11)
[2017-11-20] MEDS: ASPIRIN 81 MG TAB.CHEW PO SCH (08:11)
[2017-11-20 09:19] LABS: ABG BASE EXCESS 8.2 mmol/L; ABG PCO2 41.1 mmHg (35.0-45.0); ABG PH 7.509 (7.350-7.450); ABG PO2 72.1 mmHg (75.0-100.0); ABG SITE RIGHT RADIAL; ABG TOTAL HEMOGLOBIN 9.6 G/dL (13.5-18.0); COHb 1.8 % (0.5-1.5); MetHb 0.4 % (0.0-1.5); O2Hb 93.3 % (94.0-97.0); VENT MODE Nasal Cannula
[2017-11-20] MEDS: HYDROCODONE/APAP 5-325MG TABLET PO PRN ×2 (10:27→18:59)
[2017-11-20 15:00] LABS: *BILIRUBIN,URIN NEGATIVE (NEGATIVE); *BLOOD, URINE 2+ (NEGATIVE); *CLARITY,URINE SLIGHTLY CLOUDY (CLEAR); *COLOR,URINE YELLOW (YELLOW); *KETONES,URINE NEGATIVE (NEGATIVE); *PROTEIN,URINE NEGATIVE (NEGATIVE); LEUKOCYTE ESTERASE ,URINE NEGATIVE (NEGATIVE); NITRITE, URINE NEGATIVE (NEGATIVE); PH,URINE 5.5 (5.0-8.0); UGLUCOSE NEGATIVE (NEGATIVE)
[2017-11-20 15:40] LABS: BACTERIA,URINE FEW /HPF (NONE SEEN); RBC,URINE 20-50 /HPF (0-3); SQUAMOUS EPITHELIAL CELL,UR FEW /HPF (NONE SEEN); WBC,URINE 0-3 /HPF (0-3)
[2017-11-20] MEDS: OLANZAPINE 2.5 MG TABLET PO SCH (17:16)
[2017-11-20] MEDS: IV D5 1/2 NS 1000 ML 1,000 ML IV PRN (19:59)
[2017-11-20] MEDS: SENNOSIDES 1 TABLET PO SCH (20:43)
[2017-11-20] MEDS: HYDROMORPHONE 2 MG/1 ML DISP.SYRIN IV PRN (22:26)
[2017-11-21] VITALS (23 sets, daily range): BP systolic 99–140; BP diastolic 44–73
[2017-11-21] MEDS: IPRATROPIUM BROMIDE 0.5 MG/2.5 ML NEBU NEB SCH ×4 (00:33→19:18)
[2017-11-21] MEDS: ALBUTEROL SULFATE 1.25 MG/3 ML NEBU NEB PRN ×3 (00:33→12:46)
[2017-11-21 05:31] LABS: BASOPHILS # (AUTO) 0.1 K/uL (0.0-8.0); BASOPHILS % (AUTO) 0.7 % (0.0-2.0); EOSINOPHILS # (AUTO) 0.3 K/uL (0.0-0.7); EOSINOPHILS % (AUTO) 2.1 % (0.0-7.0); HEMATOCRIT 30.6 % (36.7-47.1); HEMOGLOBIN 10.4 g/dL (12.5-16.3); LYMPHOCYTES # (AUTO) 2.5 K/uL (20.0-40.0); LYMPHOCYTES % (AUTO) 19.3 % (20.5-51.5); MEAN CORPUSCULAR HEMOGLOBIN 32.4 uug (23.8-33.4); MEAN CORPUSCULAR HGB CONC 34 g/dL (32.5-36.3); MEAN CORPUSCULAR VOLUME 95.2 fL (73.0-96.2); MONOCYTES # (AUTO) 1.6 K/uL (2.0-10.0); MONOCYTES % (AUTO) 12.4 % (0.0-11.0); NEUTROPHILS # (AUTO) 8.6 K/uL (1.8-8.9); NEUTROPHILS % (AUTO) 65.5 % (38.5-71.5); PLATELET COUNT (AUTO) 157 K/uL (152-348); RED BLOOD CELL COUNT(AUTO) 3.21 MIL/uL (4.06-5.63); WHITE BLOOD COUNT (AUTO) 13.1 K/uL (3.6-10.2)
[2017-11-21 05:48] LABS: CARBON DIOXIDE 33 mmol/L (21-32); CHLORIDE 108 mmol/L (98-107); CREATININE 0.8 mg/dL (0.6-1.3); GLUCOSE 183 mg/dL (74-106); POTASSIUM 4.1 mmol/L (3.5-5.1); UREA NITROGEN, BLOOD 19 mg/dL (7-18)
[2017-11-21] MEDS: ASPIRIN 81 MG TAB.CHEW PO SCH (08:04)
[2017-11-21] MEDS: MEMANTINE HCL 5 MG TABLET PO SCH (08:04)
[2017-11-21] MEDS: FOLIC ACID 1 MG TABLET PO SCH (08:04)
[2017-11-21] MEDS: MIRALAX 17 GM POWD.PACK PO SCH (08:06)
[2017-11-21] MEDS: BACITRACIN/POLYMYXIN B OINT 15 GM TUBE TOP SCH (08:06)
[2017-11-21] MEDS: DIGOXIN 125 MCG TABLET PO SCH (08:11)
[2017-11-21] MEDS: METOPROLOL TARTRATE 25 MG TABLET PO SCH ×2 (08:13→20:37)
[2017-11-21] MEDS: FUROSEMIDE 40 MG TABLET PO SCH ×2 (08:15→17:00)
[2017-11-21 09:04] LABS: ABG BASE EXCESS 6.1 mmol/L; ABG HCO3 33.4 mmol/L; ABG PH 7.335 (7.350-7.450); ABG PO2 142.1 mmHg (75.0-100.0); ABG SITE RIGHT BRACHIAL; ABG TOTAL HEMOGLOBIN 10.2 G/dL (13.5-18.0); COHb 2.2 % (0.5-1.5); MetHb 0.3 % (0.0-1.5); O2Hb 96.5 % (94.0-97.0); VENT MODE Nasal Cannula
[2017-11-21] MEDS: HYDROMORPHONE 2 MG/1 ML DISP.SYRIN IV PRN ×2 (12:29→21:31)
[2017-11-21] MEDS: OLANZAPINE 2.5 MG TABLET PO SCH (17:05)
[2017-11-21] MEDS: SENNOSIDES 1 TABLET PO SCH (20:37)
[2017-11-21] MEDS: FUROSEMIDE 20 MG/2 ML VIAL IV SCH (20:40)
[2017-11-22] VITALS (23 sets, daily range): BP systolic 94–125; BP diastolic 49–76
[2017-11-22] MEDS: IPRATROPIUM BROMIDE 0.5 MG/2.5 ML NEBU NEB SCH ×4 (00:41→19:17)
[2017-11-22 05:29] LABS: BASOPHILS # (AUTO) 0.1 K/uL (0.0-8.0); BASOPHILS % (AUTO) 0.7 % (0.0-2.0); EOSINOPHILS # (AUTO) 0.1 K/uL (0.0-0.7); EOSINOPHILS % (AUTO) 1.7 % (0.0-7.0); HEMATOCRIT 27.5 % (36.7-47.1); HEMOGLOBIN 9.2 g/dL (12.5-16.3); LYMPHOCYTES # (AUTO) 1.5 K/uL (20.0-40.0); LYMPHOCYTES % (AUTO) 18.5 % (20.5-51.5); MEAN CORPUSCULAR HEMOGLOBIN 32.1 uug (23.8-33.4); MEAN CORPUSCULAR HGB CONC 34 g/dL (32.5-36.3); MEAN CORPUSCULAR VOLUME 95.6 fL (73.0-96.2); MONOCYTES % (AUTO) 11.7 % (0.0-11.0); NEUTROPHILS # (AUTO) 5.5 K/uL (1.8-8.9); NEUTROPHILS % (AUTO) 67.4 % (38.5-71.5); PLATELET COUNT (AUTO) 122 K/uL (152-348); RED BLOOD CELL COUNT(AUTO) 2.88 MIL/uL (4.06-5.63); WHITE BLOOD COUNT (AUTO) 8.2 K/uL (3.6-10.2)
[2017-11-22 05:39] LABS: CARBON DIOXIDE 36 mmol/L (21-32); CHLORIDE 110 mmol/L (98-107); CREATININE 0.9 mg/dL (0.6-1.3); GLUCOSE 111 mg/dL (74-106); MAGNESIUM 2.2 mg/dL (1.8-2.4); PHOSPHOROUS 3.8 mg/dL (2.5-4.9); POTASSIUM 3.8 mmol/L (3.5-5.1); UREA NITROGEN, BLOOD 22 mg/dL (7-18)
[2017-11-22] MEDS: ALBUTEROL SULFATE 1.25 MG/3 ML NEBU NEB PRN ×3 (07:02→19:17)
[2017-11-22] MEDS: MEMANTINE HCL 5 MG TABLET PO SCH (09:00)
[2017-11-22] MEDS: ASPIRIN 81 MG TAB.CHEW PO SCH (09:00)
[2017-11-22] MEDS: MIRALAX 17 GM POWD.PACK PO SCH (09:00)
[2017-11-22] MEDS: METOPROLOL TARTRATE 25 MG TABLET PO SCH ×2 (09:00→21:07)
[2017-11-22] MEDS: FOLIC ACID 1 MG TABLET PO SCH (09:00)
[2017-11-22] MEDS: DIGOXIN 125 MCG TABLET PO SCH (09:00)
[2017-11-22 09:04] LABS: ABG BASE EXCESS 8.9 mmol/L; ABG HCO3 35.6 mmol/L; ABG PCO2 61.9 mmHg (35.0-45.0); ABG PH 7.378 (7.350-7.450); ABG PO2 82.2 mmHg (75.0-100.0); ABG SITE RIGHT BRACHIAL; ABG TOTAL HEMOGLOBIN 10.2 G/dL (13.5-18.0); MetHb 0.3 % (0.0-1.5); O2Hb 93.5 % (94.0-97.0); VENT MODE Nasal Cannula
[2017-11-22] MEDS: BACITRACIN/POLYMYXIN B OINT 15 GM TUBE TOP SCH (09:10)
[2017-11-22] MEDS: FUROSEMIDE 20 MG/2 ML VIAL IV SCH ×2 (09:13→21:07)
[2017-11-22] MEDS: OLANZAPINE 2.5 MG TABLET PO SCH (17:03)
[2017-11-22] MEDS: SENNOSIDES 1 TABLET PO SCH (21:07)
[2017-11-22] MEDS: HYDROMORPHONE 2 MG/1 ML DISP.SYRIN IV PRN (22:16)
[2017-11-23] VITALS (16 sets, daily range): BP systolic 93–122; BP diastolic 27–77
[2017-11-23] MEDS: IPRATROPIUM BROMIDE 0.5 MG/2.5 ML NEBU NEB SCH ×4 (00:34→19:21)
[2017-11-23] MEDS: ALBUTEROL SULFATE 1.25 MG/3 ML NEBU NEB PRN ×3 (00:35→12:15)
[2017-11-23 05:27] LABS: BASOPHILS # (AUTO) 0.1 K/uL (0.0-8.0); BASOPHILS % (AUTO) 0.9 % (0.0-2.0); EOSINOPHILS # (AUTO) 0.1 K/uL (0.0-0.7); EOSINOPHILS % (AUTO) 0.7 % (0.0-7.0); HEMATOCRIT 28.4 % (36.7-47.1); HEMOGLOBIN 9.6 g/dL (12.5-16.3); LYMPHOCYTES # (AUTO) 1.5 K/uL (20.0-40.0); LYMPHOCYTES % (AUTO) 15.3 % (20.5-51.5); MEAN CORPUSCULAR HGB CONC 34 g/dL (32.5-36.3); MEAN CORPUSCULAR VOLUME 94.9 fL (73.0-96.2); MONOCYTES % (AUTO) 10.5 % (0.0-11.0); NEUTROPHILS # (AUTO) 7.2 K/uL (1.8-8.9); NEUTROPHILS % (AUTO) 72.6 % (38.5-71.5); PLATELET COUNT (AUTO) 170 K/uL (152-348); WHITE BLOOD COUNT (AUTO) 9.9 K/uL (3.6-10.2)
[2017-11-23 05:33] LABS: CARBON DIOXIDE 33 mmol/L (21-32); CHLORIDE 101 mmol/L (98-107); CREATININE 0.9 mg/dL (0.6-1.3); GLUCOSE 100 mg/dL (74-106); PHOSPHOROUS 3.8 mg/dL (2.5-4.9); POTASSIUM 3.7 mmol/L (3.5-5.1); UREA NITROGEN, BLOOD 24 mg/dL (7-18)
[2017-11-23] MEDS: FUROSEMIDE 20 MG/2 ML VIAL IV SCH (09:34)
[2017-11-23] MEDS: MIRALAX 17 GM POWD.PACK PO SCH (09:34)
[2017-11-23] MEDS: DIGOXIN 125 MCG TABLET PO SCH (09:35)
[2017-11-23] MEDS: MEMANTINE HCL 5 MG TABLET PO SCH (09:35)
[2017-11-23] MEDS: FOLIC ACID 1 MG TABLET PO SCH (09:35)
[2017-11-23] MEDS: METOPROLOL TARTRATE 25 MG TABLET PO SCH ×2 (09:36→20:55)
[2017-11-23] MEDS: BACITRACIN/POLYMYXIN B OINT 15 GM TUBE TOP SCH (09:38)
[2017-11-23] MEDS: ASPIRIN 81 MG TAB.CHEW PO SCH (09:46)
[2017-11-23 10:05] LABS: ABG BASE EXCESS 5.7 mmol/L; ABG HCO3 30.2 mmol/L; ABG PCO2 43.5 mmHg (35.0-45.0); ABG PH 7.459 (7.350-7.450); ABG PO2 78.7 mmHg (75.0-100.0); ABG SITE LEFT RADIAL; ABG TOTAL HEMOGLOBIN 9.6 G/dL (13.5-18.0); COHb 2.3 % (0.5-1.5); MetHb 0.2 % (0.0-1.5); O2Hb 93.3 % (94.0-97.0); VENT MODE Nasal Cannula
[2017-11-23] MEDS ORDERED: BARIUM SULFATE 240 ML ORAL.SUSP PO ONE (14:30)
[2017-11-23] MEDS ORDERED: BARIUM SULFATE 148 GM SUSP.RECON PO ONE (14:30)
[2017-11-23] MEDS: QUETIAPINE FUMARATE 25 MG TABLET PO PRN (16:21)
[2017-11-23] MEDS: FUROSEMIDE 40 MG TABLET PO SCH (16:21)
[2017-11-23] MEDS: OLANZAPINE 2.5 MG TABLET PO SCH (16:22)
[2017-11-23] MEDS: SENNOSIDES 1 TABLET PO SCH (20:54)
[2017-11-23] MEDS ORDERED: NITROFURANTOIN/NITROFURAN MAC 100 MG CAPSULE PO SCH (21:00)
[2017-11-23] MEDS ORDERED: LINEZOLID IV 600 MG in PREMIXED 1 EACH IV SCH (21:00)
[2017-11-23] MEDS ORDERED: NORMAL SALINE FLUSH 10 ML DISP.SYRIN IV PRN (23:30)
[2017-11-24] VITALS (7 sets, daily range): BP systolic 89–119; BP diastolic 40–62
[2017-11-24] MEDS: IPRATROPIUM BROMIDE 0.5 MG/2.5 ML NEBU NEB SCH ×4 (00:40→19:16)
[2017-11-24] MEDS: NORMAL SALINE FLUSH 10 ML DISP.SYRIN IV SCH ×3 (05:34→21:29)
[2017-11-24 06:45] LABS: BASOPHILS % (AUTO) 0.5 % (0.0-2.0); EOSINOPHILS % (AUTO) 0.1 % (0.0-7.0); HEMATOCRIT 30.7 % (36.7-47.1); HEMOGLOBIN 10.5 g/dL (12.5-16.3); LYMPHOCYTES # (AUTO) 0.4 K/uL (20.0-40.0); MEAN CORPUSCULAR HEMOGLOBIN 32.4 uug (23.8-33.4); MEAN CORPUSCULAR HGB CONC 34 g/dL (32.5-36.3); MEAN CORPUSCULAR VOLUME 95.3 fL (73.0-96.2); MONOCYTES # (AUTO) 0.7 K/uL (2.0-10.0); MONOCYTES % (AUTO) 7.5 % (0.0-11.0); NEUTROPHILS # (AUTO) 7.9 K/uL (1.8-8.9); NEUTROPHILS % (AUTO) 87.9 % (38.5-71.5); PLATELET COUNT (AUTO) 187 K/uL (152-348); RED BLOOD CELL COUNT(AUTO) 3.22 MIL/uL (4.06-5.63)
[2017-11-24 06:47] LABS: CARBON DIOXIDE 32 mmol/L (21-32); CHLORIDE 101 mmol/L (98-107); GLUCOSE 158 mg/dL (74-106); MAGNESIUM 2.1 mg/dL (1.8-2.4); UREA NITROGEN, BLOOD 29 mg/dL (7-18)
[2017-11-24] MEDS: ALBUTEROL SULFATE 1.25 MG/3 ML NEBU NEB PRN ×2 (07:18→13:25)
[2017-11-24] MEDS: MEMANTINE HCL 5 MG TABLET PO SCH (08:37)
[2017-11-24] MEDS: FUROSEMIDE 40 MG TABLET PO SCH ×2 (08:37→17:48)
[2017-11-24] MEDS: ASPIRIN 81 MG TAB.CHEW PO SCH (08:37)
[2017-11-24] MEDS: MIRALAX 17 GM POWD.PACK PO SCH (08:37)
[2017-11-24] MEDS: FOLIC ACID 1 MG TABLET PO SCH (08:37)
[2017-11-24] MEDS: BACITRACIN/POLYMYXIN B OINT 15 GM TUBE TOP SCH (08:43)
[2017-11-24] MEDS: METOPROLOL TARTRATE 25 MG TABLET PO SCH ×2 (08:43→21:00)
[2017-11-24 09:33] LABS: ABG BASE EXCESS 4.2 mmol/L; ABG PCO2 51.6 mmHg (35.0-45.0); ABG PH 7.383 (7.350-7.450); ABG PO2 65.2 mmHg (75.0-100.0); ABG SITE RIGHT RADIAL; ABG TOTAL HEMOGLOBIN 10.1 G/dL (13.5-18.0); COHb 2.2 % (0.5-1.5); MetHb 0.3 % (0.0-1.5); O2Hb 88.9 % (94.0-97.0); VENT MODE Nasal Cannula
[2017-11-24 10:44] LABS: *OCCULT BLOOD STOOL NEGATIVE (NEGATIVE)
[2017-11-24] MEDS: HYDROCODONE/APAP 5-325MG TABLET PO PRN (15:57)
[2017-11-24] MEDS: OLANZAPINE 2.5 MG TABLET PO SCH (17:49)
[2017-11-24] MEDS: SENNOSIDES 1 TABLET PO SCH (21:28)
[2017-11-25] VITALS (7 sets, daily range): BP systolic 98–151; BP diastolic 45–64
[2017-11-25] MEDS: IPRATROPIUM BROMIDE 0.5 MG/2.5 ML NEBU NEB SCH ×4 (00:46→19:11)
[2017-11-25] MEDS: NORMAL SALINE FLUSH 10 ML DISP.SYRIN IV SCH ×3 (06:07→22:53)
[2017-11-25] MEDS: Z GUARD REMEDY PASTE 57 GM TUBE TOP PRN (06:07)
[2017-11-25 06:09] LABS: BASOPHILS # (AUTO) 0.1 K/uL (0.0-8.0); BASOPHILS % (AUTO) 0.9 % (0.0-2.0); EOSINOPHILS # (AUTO) 0.1 K/uL (0.0-0.7); EOSINOPHILS % (AUTO) 1.2 % (0.0-7.0); HEMATOCRIT 25.8 % (36.7-47.1); HEMOGLOBIN 8.9 g/dL (12.5-16.3); LYMPHOCYTES # (AUTO) 1.5 K/uL (20.0-40.0); LYMPHOCYTES % (AUTO) 18.5 % (20.5-51.5); MEAN CORPUSCULAR HEMOGLOBIN 32.5 uug (23.8-33.4); MEAN CORPUSCULAR HGB CONC 35 g/dL (32.5-36.3); MEAN CORPUSCULAR VOLUME 94.1 fL (73.0-96.2); MONOCYTES # (AUTO) 1.2 K/uL (2.0-10.0); MONOCYTES % (AUTO) 14.7 % (0.0-11.0); NEUTROPHILS # (AUTO) 5.4 K/uL (1.8-8.9); NEUTROPHILS % (AUTO) 64.7 % (38.5-71.5); PLATELET COUNT (AUTO) 169 K/uL (152-348); RED BLOOD CELL COUNT(AUTO) 2.74 MIL/uL (4.06-5.63); WHITE BLOOD COUNT (AUTO) 8.4 K/uL (3.6-10.2)
[2017-11-25 06:20] LABS: CARBON DIOXIDE 37 mmol/L (21-32); CHLORIDE 104 mmol/L (98-107); CREATININE 0.8 mg/dL (0.6-1.3); GLUCOSE 104 mg/dL (74-106); MAGNESIUM 2.1 mg/dL (1.8-2.4); PHOSPHOROUS 2.1 mg/dL (2.5-4.9); POTASSIUM 2.9 mmol/L (3.5-5.1); UREA NITROGEN, BLOOD 26 mg/dL (7-18)
[2017-11-25] MEDS: ALBUTEROL SULFATE 1.25 MG/3 ML NEBU NEB PRN ×2 (07:24→13:38)
[2017-11-25] MEDS: FUROSEMIDE 40 MG TABLET PO SCH ×2 (08:30→16:51)
[2017-11-25] MEDS: MEMANTINE HCL 5 MG TABLET PO SCH (08:30)
[2017-11-25] MEDS: ASPIRIN 81 MG TAB.CHEW PO SCH (08:30)
[2017-11-25] MEDS: QUETIAPINE FUMARATE 25 MG TABLET PO PRN (08:30)
[2017-11-25] MEDS: FOLIC ACID 1 MG TABLET PO SCH (08:30)
[2017-11-25] MEDS: MIRALAX 17 GM POWD.PACK PO SCH (08:30)
[2017-11-25] MEDS: METOPROLOL TARTRATE 25 MG TABLET PO SCH ×2 (08:31→20:54)
[2017-11-25] MEDS: BACITRACIN/POLYMYXIN B OINT 15 GM TUBE TOP SCH (08:32)
[2017-11-25 09:09] LABS: ABG BASE EXCESS 9.6 mmol/L; ABG HCO3 34.6 mmol/L; ABG PCO2 49.3 mmHg (35.0-45.0); ABG PH 7.464 (7.350-7.450); ABG PO2 67.6 mmHg (75.0-100.0); ABG SITE RIGHT RADIAL; COHb 1.9 % (0.5-1.5); MetHb 0.2 % (0.0-1.5); VENT MODE Nasal Cannula
[2017-11-25] MEDS: CLOPIDOGREL 75 MG TABLET PO SCH (09:34)
[2017-11-25] MEDS: POTASSIUM CHLORIDE 50 ML IV SCH ×6 (10:34→16:51)
[2017-11-25] MEDS ORDERED: NEUTRA PHOS PACKET PO ONE (16:30)
[2017-11-25] MEDS: OLANZAPINE 2.5 MG TABLET PO SCH (16:50)
[2017-11-25] MEDS: SENNOSIDES 1 TABLET PO SCH (20:54)
[2017-11-26] VITALS (13 sets, daily range): BP systolic 91–129; BP diastolic 41–77
[2017-11-26] MEDS: IPRATROPIUM BROMIDE 0.5 MG/2.5 ML NEBU NEB SCH ×3 (00:41→12:36)
[2017-11-26] MEDS: NORMAL SALINE FLUSH 10 ML DISP.SYRIN IV SCH ×2 (06:10→14:00)
[2017-11-26 07:09] LABS: CARBON DIOXIDE 35 mmol/L (21-32); CHLORIDE 106 mmol/L (98-107); CREATININE 0.8 mg/dL (0.6-1.3); GLUCOSE 107 mg/dL (74-106); MAGNESIUM 2.1 mg/dL (1.8-2.4); PHOSPHOROUS 2.4 mg/dL (2.5-4.9); POTASSIUM 3.7 mmol/L (3.5-5.1); UREA NITROGEN, BLOOD 18 mg/dL (7-18)
[2017-11-26] MEDS: ALBUTEROL SULFATE 1.25 MG/3 ML NEBU NEB PRN ×2 (07:24→12:36)
[2017-11-26 07:25] LABS: BASOPHILS # (AUTO) 0.1 K/uL (0.0-8.0); BASOPHILS % (AUTO) 0.7 % (0.0-2.0); EOSINOPHILS # (AUTO) 0.1 K/uL (0.0-0.7); EOSINOPHILS % (AUTO) 0.9 % (0.0-7.0); HEMATOCRIT 27.9 % (36.7-47.1); HEMOGLOBIN 9.7 g/dL (12.5-16.3); LYMPHOCYTES # (AUTO) 1.2 K/uL (20.0-40.0); LYMPHOCYTES % (AUTO) 16.9 % (20.5-51.5); MEAN CORPUSCULAR HEMOGLOBIN 33.1 uug (23.8-33.4); MEAN CORPUSCULAR HGB CONC 35 g/dL (32.5-36.3); MONOCYTES % (AUTO) 13.7 % (0.0-11.0); NEUTROPHILS # (AUTO) 4.9 K/uL (1.8-8.9); NEUTROPHILS % (AUTO) 67.8 % (38.5-71.5); PLATELET COUNT (AUTO) 151 K/uL (152-348); RED BLOOD CELL COUNT(AUTO) 2.94 MIL/uL (4.06-5.63); WHITE BLOOD COUNT (AUTO) 7.2 K/uL (3.6-10.2)
[2017-11-26 09:26] LABS: ABG BASE EXCESS 8.5 mmol/L; ABG HCO3 34.1 mmol/L; ABG PCO2 52.7 mmHg (35.0-45.0); ABG PH 7.429 (7.350-7.450); ABG PO2 78.9 mmHg (75.0-100.0); ABG SITE RIGHT RADIAL; ABG TOTAL HEMOGLOBIN 10.4 G/dL (13.5-18.0); COHb 1.7 % (0.5-1.5); MetHb 0.3 % (0.0-1.5); O2Hb 93.2 % (94.0-97.0); VENT MODE Nasal Cannula
[2017-11-26] MEDS: MEMANTINE HCL 5 MG TABLET PO SCH (09:30)
[2017-11-26] MEDS: MIRALAX 17 GM POWD.PACK PO SCH (09:30)
[2017-11-26] MEDS: METOPROLOL TARTRATE 25 MG TABLET PO SCH (09:30)
[2017-11-26] MEDS: FOLIC ACID 1 MG TABLET PO SCH (09:31)
[2017-11-26] MEDS: CLOPIDOGREL 75 MG TABLET PO SCH (09:31)
[2017-11-26] MEDS: FUROSEMIDE 40 MG TABLET PO SCH (09:31)
[2017-11-26] MEDS: ASPIRIN 81 MG TAB.CHEW PO SCH (09:31)
[2017-11-26] MEDS: BACITRACIN/POLYMYXIN B OINT 15 GM TUBE TOP SCH (09:43)
[2017-11-26] MEDS ORDERED: BACI15OI3 TOP (10:05)
[2017-11-26] MEDS ORDERED: POLY17PO4 PO (10:05)
[2017-11-26] MEDS ORDERED: CLOP75TA15 PO (10:05)
[2017-11-26] MEDS ORDERED: QUET25TA PO (10:05)
[2017-11-26] MEDS ORDERED: MENT71OI TOP (10:05)
[2017-11-26] MEDS ORDERED: METO25TA6 PO (10:05)
[2017-11-26] MEDS ORDERED: ALBU1.25 INH (10:05)
[2017-11-26] MEDS ORDERED: FURO40TA5 PO (10:05)
[2017-11-26] MEDS ORDERED: ASPI81TA31 PO (10:05)
[2017-11-26] MEDS ORDERED: MEMA5TAB PO (10:05)
[2017-11-26] MEDS ORDERED: NEUTRA PHOS PACKET PO ONE (15:30)
[2017-11-26] MEDS ORDERED: PNEUMOCOCCAL 23-VAL P-SAC VAC 0.5 ML VIAL IM ONE (15:45)
[2017-11-26] MEDS ORDERED: FUROSEMIDE 40 MG TABLET PO SCH (17:00)
== END 2017-11-26 18:40 | DRG 981 ==
LOC: ER 19:26 → TELE 20:40 → TELE-TD 22:30 → CCU 11-12 00:10 → TELE-TD 11-23 17:42 → CCU 11-26 06:17
PROVIDERS: ADMIT Internal Medicine; ATTEND Internal Medicine
PROC: 5A1955Z Respiratory Ventilation, Greater than 96 Consecutive Hours (ICD-10-PCS; principal; 2017-11-12)
PROC: 0BH17EZ Insertion of Endotracheal Airway into Trachea, Via Natural or Artificial Opening (ICD-10-PCS; 2017-11-12)
PROC: 0QS606Z Reposition Right Upper Femur with Intramedullary Internal Fixation Device, Open Approach (ICD-10-PCS; 2017-11-14)
PROC: 30233N1 Transfusion of Nonautologous Red Blood Cells into Peripheral Vein, Percutaneous Approach (ICD-10-PCS; 2017-11-16)
PROC: 0W993ZX Drainage of Right Pleural Cavity, Percutaneous Approach, Diagnostic (ICD-10-PCS; 2017-11-19)
PROC: 0W9B3ZX Drainage of Left Pleural Cavity, Percutaneous Approach, Diagnostic (ICD-10-PCS; 2017-11-20)
DX: I13.0 Hypertensive heart and chronic kidney disease with heart failure and stage 1 through stage 4 chronic kidney disease, or unspecified chronic kidney disease (principal); S72.144A Nondisplaced intertrochanteric fracture of right femur, initial encounter for closed fracture; N17.0 Acute kidney failure with tubular necrosis; E43 Unspecified severe protein-calorie malnutrition; G92 Toxic encephalopathy; J91.8 Pleural effusion in other conditions classified elsewhere; J96.01 Acute respiratory failure with hypoxia; J96.02 Acute respiratory failure with hypercapnia; J44.1 Chronic obstructive pulmonary disease with (acute) exacerbation; D69.59 Other secondary thrombocytopenia; I50.33 Acute on chronic diastolic (congestive) heart failure; E87.0 Hyperosmolality and hypernatremia; R18.8 Other ascites; N39.0 Urinary tract infection, site not specified; J98.11 Atelectasis; I48.92 Unspecified atrial flutter; I42.9 Cardiomyopathy, unspecified; R13.10 Dysphagia, unspecified; E83.39 Other disorders of phosphorus metabolism; I48.2 Chronic atrial fibrillation; B95.2 Enterococcus as the cause of diseases classified elsewhere; D50.0 Iron deficiency anemia secondary to blood loss (chronic); Z68.20 Body mass index [BMI] 20.0-20.9, adult; W18.30XA Fall on same level, unspecified, initial encounter; Y93.89 Activity, other specified; N18.9 Chronic kidney disease, unspecified; K74.60 Unspecified cirrhosis of liver; I25.10 Atherosclerotic heart disease of native coronary artery without angina pectoris; Z98.61 Coronary angioplasty status; Z79.899 Other long term (current) drug therapy; D63.8 Anemia in other chronic diseases classified elsewhere; E78.5 Hyperlipidemia, unspecified; F03.90 Unspecified dementia, unspecified severity, without behavioral disturbance, psychotic disturbance, mood disturbance, and anxiety; I08.1 Rheumatic disorders of both mitral and tricuspid valves; I27.20 Pulmonary hypertension, unspecified; I48.0 Paroxysmal atrial fibrillation; K44.9 Diaphragmatic hernia without obstruction or gangrene; S09.90XA Unspecified injury of head, initial encounter; Z86.73 Personal history of transient ischemic attack (TIA), and cerebral infarction without residual deficits; Z95.3 Presence of xenogenic heart valve; M47.814 Spondylosis without myelopathy or radiculopathy, thoracic region; Z72.0 Tobacco use; E87.6 Hypokalemia
CPT/HCPCS: 32555; 36415; 36600; 70030-TC; 70450; 71045; 71046; 71250; 72170; 73502; 73503; 74018; 74230; 76604; 83550; 83615; 83735; 83986; 84100; 84155; 84156; 84300; 84443; 85025; 85610; 85730; 86625; 86850; 86900; 86901; 86920; 87046; 87070; 87075; 87077; 87086; 87205; 90732; 92526; 92610; 92611; 93005; 93307; 94002; 94003; 94640; 94660; 94664; 97110; 97116; 97530; A4217; A4649; A4663; C1713; C1769; J0282; J0330; J0690; J0696; J1160; J1170; J1940; J2250; J2405; J2920; J3475; J3480; J3490; J3590; J7030; J7050; J7060; P9016-BL; P9021